=== PATIENT | female | born 1965 | race Caucasian/White ===

== ENCOUNTER → 2016-04-11 | Outpatient (CLI) | payer MEDICARE ==
[2016-04-11 12:48] LABS: ALANINE AMINOTRANSFERASE 39 U/L (9-52); ALBUMIN 2.7 g/dL (3.5-5.0); ALKALINE PHOSPHATASE 187 U/L (38-126); ANION GAP 8 (5-19); ASPARTATE AMINO TRANSFERASE 37 U/L (14-36); BILIRUBIN,TOTAL 0.4 mg/dL (0.2-1.3); BLOOD UREA NITROGEN 37 mg/dL (7-20); CALCIUM 8.3 mg/dL (8.4-10.2); CARBON DIOXIDE 29 mmol/L (22-30); CHLORIDE 102 mmol/L (98-107); CREATININE RESULT 0.39 mg/dL (0.52-1.25); GLUCOSE 87 mg/dL (75-110); MAGNESIUM 2.1 mg/dL (1.6-2.3); PHOSPHORUS 4.4 mg/dL (2.5-4.5); POTASSIUM 4.9 mmol/L (3.6-5.0); SODIUM 139.3 mmol/L (137-145); TOTAL PROTEIN 5.7 g/dL (6.3-8.2)
[2016-04-11 12:50] LABS: HEMATOCRIT 37.1 % (36.0-47.0); HGB HCT DIFFERENCE -1.1; MEAN CORPUSCULAR HEMOGLOBIN 27.3 pg (27.0-33.4); MEAN CORPUSCULAR HGB CONC 32.3 g/dL (32.0-36.0); MEAN CORPUSCULAR VOLUME 85 fl (80-97); RED BLOOD COUNT 4.39 10^6/uL (3.72-5.28); RED CELL DISTRIBUTION WIDTH 15.6 % (11.5-14.0); WHITE BLOOD COUNT 3.9 10^3/uL (4.0-10.5)
[2016-04-11 12:55] LABS: PREALBUMIN 14.2 mg/dL (17.6-36.0)
== END ==
LOC: LAB 12:13
PROVIDERS: ATTEND Nurse Practitioner
DX: E86.0 Dehydration (principal); R78.81 Bacteremia; R10.10 Upper abdominal pain, unspecified; K63.2 Fistula of intestine; E74.39 Other disorders of intestinal carbohydrate absorption
CPT/HCPCS: 36415; 80053; 83735; 84100; 84134; 85027

== ENCOUNTER → 2016-04-27 | Outpatient (CLI) | payer MEDICARE ==
[2016-04-27 13:38] LABS: HEMATOCRIT 39.1 % (36.0-47.0); HEMOGLOBIN 12.8 g/dL (12.0-15.5); HGB HCT DIFFERENCE -0.7; MEAN CORPUSCULAR HEMOGLOBIN 27.3 pg (27.0-33.4); MEAN CORPUSCULAR HGB CONC 32.7 g/dL (32.0-36.0); MEAN CORPUSCULAR VOLUME 84 fl (80-97); RED BLOOD COUNT 4.67 10^6/uL (3.72-5.28); RED CELL DISTRIBUTION WIDTH 15.2 % (11.5-14.0); WHITE BLOOD COUNT 2.9 10^3/uL (4.0-10.5)
[2016-04-27 13:55] LABS: ALANINE AMINOTRANSFERASE 39 U/L (9-52); ALBUMIN 3.5 g/dL (3.5-5.0); ALKALINE PHOSPHATASE 207 U/L (38-126); ANION GAP 11 (5-19); ASPARTATE AMINO TRANSFERASE 36 U/L (14-36); BILIRUBIN,TOTAL 0.7 mg/dL (0.2-1.3); BLOOD UREA NITROGEN 33 mg/dL (7-20); CARBON DIOXIDE 27 mmol/L (22-30); CHLORIDE 102 mmol/L (98-107); CREATININE RESULT 0.49 mg/dL (0.52-1.25); GLUCOSE 93 mg/dL (75-110); MAGNESIUM 2.1 mg/dL (1.6-2.3); PHOSPHORUS 5.1 mg/dL (2.5-4.5); POTASSIUM 4.5 mmol/L (3.6-5.0); SODIUM 140.4 mmol/L (137-145); TOTAL PROTEIN 6.4 g/dL (6.3-8.2)
[2016-04-27 14:02] LABS: PREALBUMIN 15.6 mg/dL (17.6-36.0)
== END ==
LOC: OD 12:42
PROVIDERS: ATTEND Nurse Practitioner
DX: E86.0 Dehydration (principal); R78.81 Bacteremia; R10.10 Upper abdominal pain, unspecified; K63.2 Fistula of intestine
CPT/HCPCS: 36415; 80053; 83735; 84100; 84134; 85027